=== PATIENT | female | born 1955 | race Caucasian/White ===

== ENCOUNTER 2021-11-09 08:52 | Day surgery (SDC) | payer MEDICARE, OTHER ==
[2021-11-09] MEDS: Lactated Ringers 1,000 ML IV SCH (09:55)
[2021-11-09] MEDS ORDERED: cefOXitin 2 GM in Premix Bag 1 BAG IV ONE (10:31)
[2021-11-09] MEDS ORDERED: fentaNYL 100 MCG/2 ML SDV ONE (11:33)
[2021-11-09] MEDS ORDERED: Propofol 200 MG/20 ML SDV ONE ×3 (11:33→12:25)
[2021-11-09] MEDS ORDERED: Glycopyrrolate 0.2 MG/ML SDV ONE (12:13)
[2021-11-09] MEDS ORDERED: ePHEDrine 50 MG/ML SDV ONE (12:13)
[2021-11-09] MEDS ORDERED: Acetaminophen 325 MG Tab PO PRN (12:48)
[2021-11-09] MEDS ORDERED: Ondansetron 4 MG/2 ML SDV IVPUSH PRN (12:48)
[2021-11-09] MEDS ORDERED: Lactated Ringers 1,000 ML IV SCH (13:00)
== END 2021-11-09 13:50 | disposition home or self-care (01) ==
LOC: MW.SDS 08:52
PROVIDERS: ATTEND Surgery
DX: Z12.11 Encounter for screening for malignant neoplasm of colon (principal); D12.8 Benign neoplasm of rectum; K29.50 Unspecified chronic gastritis without bleeding; K64.9 Unspecified hemorrhoids; K29.00 Acute gastritis without bleeding; J44.9 Chronic obstructive pulmonary disease, unspecified; I12.9 Hypertensive chronic kidney disease with stage 1 through stage 4 chronic kidney disease, or unspecified chronic kidney disease; E11.22 Type 2 diabetes mellitus with diabetic chronic kidney disease; I25.10 Atherosclerotic heart disease of native coronary artery without angina pectoris; N18.9 Chronic kidney disease, unspecified; E78.00 Pure hypercholesterolemia, unspecified; E03.9 Hypothyroidism, unspecified; E66.9 Obesity, unspecified; M81.0 Age-related osteoporosis without current pathological fracture; G62.9 Polyneuropathy, unspecified; E59 Dietary selenium deficiency; F41.9 Anxiety disorder, unspecified; F17.210 Nicotine dependence, cigarettes, uncomplicated; Z80.0 Family history of malignant neoplasm of digestive organs; Z88.2 Allergy status to sulfonamides; Z88.8 Allergy status to other drugs, medicaments and biological substances; Z79.899 Other long term (current) drug therapy; Z79.82 Long term (current) use of aspirin; Z79.890 Hormone replacement therapy; Z98.890 Other specified postprocedural states; Z68.28 Body mass index [BMI] 28.0-28.9, adult
CPT/HCPCS: 00813; J2704; J3010; J3490; J7120